=== PATIENT | female | born 1990 | race Caucasian/White ===

== ENCOUNTER 2018-04-18 09:53 | Outpatient (CLI) | payer BC ==
[2018-04-18 10:29] LABS: BUN/Creatinine Ratio 16; Blood Urea Nitrogen 11 mg/dL (7-17); Calcium 9.2 mg/dL (8.4-10.2); Hemolysis Index 3
--- NOTE | 2018-04-18 11:21 | Cat Scan Report ---
CTA CHEST INDICATION: Precordial pain. COMPARISON: None similar. FINDINGS: Chest CTA performed following intravenous administration of 100 cc of Omnipaque 350. Rotational MIP's also obtained. Normal heart size. No effusions. No aortic aneurysm, dissection or suspicious pulmonary arterial filling defects. No size significant adenopathy. Slight residual thymic tissue with preserved mediastinal contours. Normal airway. Unremarkable thyroid. Clear lungs. Images through included upper abdomen reveal no significant abnormality. Mild thoracic spine degenerative changes. CONCLUSION: No acute chest CT abnormality or evidence of pulmonary embolism, as described. Thank you for the opportunity to participate in this patient's care.
== END 2018-04-18 09:54 | disposition home or self-care (01) ==
LOC: CT 09:53
PROVIDERS: ATTEND Internal Medicine Cardiovascular Disease
DX: R07.2 Precordial pain (principal)
CPT/HCPCS: 36415; 71275; 80048; Q9967

== ENCOUNTER 2019-05-07 11:21 | Outpatient (CLI) | payer BC ==
--- NOTE | 2019-05-07 13:10 | Magnetic Resonance Report ---
MR brain wo con INDICATION / CLINICAL INFORMATION: 28 years Female; I63.9Cerebral infarction, unspecified. TECHNIQUE: Multiplanar, multisequence MR images of the brain were obtained. COMPARISON: None available. FINDINGS: BRAIN / INTRACRANIAL CONTENTS: No acute hemorrhage, mass effect, midline shift, hydrocephalus, or acu te, large territorial infarct. No chronic infarct or atrophy. No significant white matter abnormality . CRANIOCERVICAL JUNCTION: No significant abnormality. VASCULAR FLOW-VOIDS: No significant abnormality. ORBITS: No significant abnormality of visualized orbits. SINUSES / MASTOIDS: Mucosal thickening in the ethmoids and left maxillary antral region. ADDITIONAL FINDINGS: None. IMPRESSION: 1. No focal mass, hemorrhage, hydrocephalus, or acute ischemia. Signer Name: Luca Reyes MD, III Signed: 05/07/2019 1:05 PM Workstation Name: [id number]
== END 2019-05-07 11:22 | disposition home or self-care (01) ==
LOC: MRI 11:21
PROVIDERS: ATTEND Psychiatry & Neurology Neurology
DX: I63.9 Cerebral infarction, unspecified (principal)
CPT/HCPCS: 70551